=== PATIENT | male | born 1930 | race Caucasian/White ===

== ENCOUNTER 2017-11-13 13:01 | Inpatient (IN) | payer MEDICARE, BC ==
[~2017-11-13] VITALS: Ht 175.3 cm; Wt 89.4 kg
[2017-11-13 15:23] VITALS: BP 100/52; PULSE 76; TEMP 97.9
[2017-11-13] MEDS ORDERED: ZYLOPRIM 100MG100 MG PO (17:38)
[2017-11-13] MEDS ORDERED: ASPIRIN 81M81 MG/TA2 PO (17:39)
[2017-11-13] MEDS ORDERED: CRESTOR 10MG10 MG PO (17:39)
[2017-11-13] MEDS ORDERED: THE MEDICINE S200 M2 PO (17:39)
[2017-11-13] MEDS ORDERED: JANUVIA 100MG100 MG PO (17:40)
[2017-11-13] MEDS ORDERED: LASIX 40MG TABL40 MG PO (17:40)
[2017-11-13] MEDS ORDERED: LEVOXYL0.125 MG PO (17:40)
[2017-11-13] MEDS ORDERED: NATURAL MAGNES200 MG PO (17:41)
[2017-11-13] MEDS ORDERED: TOPROL XL 25MG25 MG PO (17:42)
[2017-11-13] MEDS ORDERED: NITROSTAT0.4 MG/TAB SL (17:43)
[2017-11-13] MEDS ORDERED: PRIL40 PO (17:43)
[2017-11-13 19:53] VITALS: BP 123/61; PULSE 74; TEMP 98
[2017-11-13 23:54] VITALS: BP 141/68; PULSE 62; TEMP 97.9
[2017-11-14 04:00] VITALS: BP 112/63; PULSE 69; TEMP 97.3
[2017-11-14 06:26] LABS: HEMATOCRIT 43.3 % (42.0-52.0); HEMOGLOBIN 13.7 g/dl (13.5-18.0); MEAN CELL VOLUME 105 fl (80.0-100.0); MEAN CORPUSCULAR HEMOGLOBIN 33 pg (27.0-31.0); MEAN CORPUSCULAR HGB CONC 32 g/dl (33.0-37.0); MEAN PLATELET VOLUME 11.4 fl (7.4-10.4); PLATELET COUNT 172 K/mm3 (130-400); RED BLOOD COUNT 4.11 M/mm3 (4.20-5.60); REDCELL DISTRIBUTION WIDTH-CV 14.5 % (11.5-14.5)
[2017-11-14 06:42] LABS: CALCIUM 8.8 mg/dL (8.4-10.2); CREATININE, serum 1.3 mg/dL (0.66-1.25); POTASSIUM 4.3 mmol/L (3.4-5.0)
[2017-11-14 07:11] LABS: BAND 10 % (0-10); LYMPHOCYTE 5 % (20.0-51.0); NEUTROPHILS 71 % (42.0-75.2); PLATELET ESTIMATE NORMAL (NORMAL)
[2017-11-14 07:21] VITALS: BP 118/66; PULSE 66; TEMP 97.8
[2017-11-14 11:49] VITALS: BP 129/69; PULSE 97; TEMP 97.8
[2017-11-14] MEDS ORDERED: LASIX 40MG TABL40 MG PO (14:08)
[2017-11-14 16:02] VITALS: BP 114/47; PULSE 60; TEMP 97.8
[2017-11-14 18:19] LABS: HEMATOCRIT 39.4 % (42.0-52.0); HEMOGLOBIN 12.8 g/dl (13.5-18.0); MEAN CELL VOLUME 105 fl (80.0-100.0); MEAN CORPUSCULAR HEMOGLOBIN 34 pg (27.0-31.0); MEAN CORPUSCULAR HGB CONC 33 g/dl (33.0-37.0); MEAN PLATELET VOLUME 11.7 fl (7.4-10.4); PLATELET COUNT 151 K/mm3 (130-400); RED BLOOD COUNT 3.77 M/mm3 (4.20-5.60); REDCELL DISTRIBUTION WIDTH-CV 14.6 % (11.5-14.5)
[2017-11-14 20:06] VITALS: BP 126/67; PULSE 68; TEMP 98.3
[2017-11-14 20:58] VITALS: BP 126/67; PULSE 68; TEMP 98.3
[2017-11-15] VITALS (625 sets, daily range): BP systolic 94–133; BP diastolic 56–84; PULSE 71–90; TEMP 97.4–99.3; O2SAT 60–100
[2017-11-15 06:33] LABS: BASO % 0.1 % (0.0-2.0); GRAN # 12.8 (1.4-6.5); GRAN % 89.9 % (42.2-75.2); HEMATOCRIT 43.1 % (42.0-52.0); HEMOGLOBIN 13.6 g/dl (13.5-18.0); LYMPH # 0.5 (1.2-3.4); LYMPH % 3.5 % (20.0-51.0); MEAN CELL VOLUME 106 fl (80.0-100.0); MEAN CORPUSCULAR HEMOGLOBIN 33 pg (27.0-31.0); MEAN CORPUSCULAR HGB CONC 32 g/dl (33.0-37.0); MEAN PLATELET VOLUME 11.3 fl (7.4-10.4); MONO # 0.8 (0.1-0.6); MONO % 5.9 % (1.7-9.3); PLATELET COUNT 161 K/mm3 (130-400); RED BLOOD COUNT 4.08 M/mm3 (4.20-5.60); REDCELL DISTRIBUTION WIDTH-CV 14.5 % (11.5-14.5)
[2017-11-15 06:44] LABS: ALBUMIN 3.4 gm/dL (3.5-5.0); BILIRUBIN,TOTAL 0.9 mg/dL (0.0-1.0); CALCIUM 8.1 mg/dL (8.4-10.2); CREATININE, serum 1.52 mg/dL (0.66-1.25); MAGNESIUM 1.6 mg/dL (1.6-2.3); POTASSIUM 4.3 mmol/L (3.4-5.0); TOTAL PROTEIN 6.8 gm/dL (6.4-8.2)
[2017-11-16] VITALS (222 sets, daily range): BP systolic 82–150; BP diastolic 34–88; PULSE 70–112; TEMP 97.5–99.3; O2SAT 91–100
[2017-11-16 05:57] LABS: BASO % 0.1 % (0.0-2.0); GRAN # 9.4 (1.4-6.5); HEMATOCRIT 40.1 % (42.0-52.0); HEMOGLOBIN 12.6 g/dl (13.5-18.0); LYMPH # 0.7 (1.2-3.4); MEAN CELL VOLUME 107 fl (80.0-100.0); MEAN CORPUSCULAR HEMOGLOBIN 34 pg (27.0-31.0); MEAN CORPUSCULAR HGB CONC 31 g/dl (33.0-37.0); MEAN PLATELET VOLUME 11.6 fl (7.4-10.4); MONO # 1.3 (0.1-0.6); MONO % 10.9 % (1.7-9.3); PLATELET COUNT 169 K/mm3 (130-400); RED BLOOD COUNT 3.76 M/mm3 (4.20-5.60); REDCELL DISTRIBUTION WIDTH-CV 14.6 % (11.5-14.5)
[2017-11-16 06:14] LABS: CREATININE, serum 1.7 mg/dL (0.66-1.25); POTASSIUM 4.4 mmol/L (3.4-5.0)
[2017-11-17 03:30] VITALS: BP 142/85; PULSE 97; TEMP 98.4
[2017-11-17 05:45] LABS: BASO % 0.1 % (0.0-2.0); EOS % 0.2 % (0-4.0); GRAN # 9.8 (1.4-6.5); GRAN % 84.7 % (42.2-75.2); HEMATOCRIT 37.9 % (42.0-52.0); HEMOGLOBIN 11.7 g/dl (13.5-18.0); LYMPH # 0.8 (1.2-3.4); LYMPH % 7.3 % (20.0-51.0); MEAN CELL VOLUME 108 fl (80.0-100.0); MEAN CORPUSCULAR HEMOGLOBIN 33 pg (27.0-31.0); MEAN CORPUSCULAR HGB CONC 31 g/dl (33.0-37.0); MEAN PLATELET VOLUME 11.1 fl (7.4-10.4); MONO # 0.8 (0.1-0.6); MONO % 6.7 % (1.7-9.3); PLATELET COUNT 167 K/mm3 (130-400); RED BLOOD COUNT 3.52 M/mm3 (4.20-5.60); REDCELL DISTRIBUTION WIDTH-CV 14.6 % (11.5-14.5)
[2017-11-17 06:03] LABS: CALCIUM 8.5 mg/dL (8.4-10.2); CREATININE, serum 1.56 mg/dL (0.66-1.25); POTASSIUM 3.8 mmol/L (3.4-5.0)
[2017-11-17 11:22] VITALS: BP 144/87; PULSE 97; TEMP 97.3
[2017-11-17 13:25] LABS: IRON,SERUM 18 ug/dL (35-150)
[2017-11-17 13:34] LABS: TOTAL IRON BINDING CAPACITY 205 ug/dL (261-462)
[2017-11-17 16:02] VITALS: BP 154/83; PULSE 101; TEMP 97.4
[2017-11-17 21:13] VITALS: BP 148/90; PULSE 111; TEMP 07.2
[2017-11-17 23:51] VITALS: BP 126/84; PULSE 120; TEMP 97.3
[2017-11-18] VITALS (14 sets, daily range): BP systolic 128–154; BP diastolic 59–97; PULSE 89–114; TEMP 97.5–98.6
[2017-11-18 08:19] LABS: CALCIUM 8.9 mg/dL (8.4-10.2); CREATININE, serum 1.63 mg/dL (0.66-1.25); POTASSIUM 3.1 mmol/L (3.4-5.0)
[2017-11-18 08:52] LABS: HEMOGLOBIN 11.8 g/dl (13.5-18.0); MEAN CORPUSCULAR HEMOGLOBIN 33 pg (27.0-31.0); MEAN CORPUSCULAR HGB CONC 32 g/dl (33.0-37.0); MEAN PLATELET VOLUME 11.4 fl (7.4-10.4); PLATELET COUNT 195 K/mm3 (130-400); RED BLOOD COUNT 3.59 M/mm3 (4.20-5.60); REDCELL DISTRIBUTION WIDTH-CV 14.5 % (11.5-14.5)
[2017-11-18 08:53] LABS: HEMATOCRIT 36.9 % (42.0-52.0); MEAN CELL VOLUME 103 fl (80.0-100.0)
[2017-11-18 09:07] LABS: BAND 16 % (0-10); LYMPHOCYTE 3 % (20.0-51.0); NEUTROPHILS 68 % (42.0-75.2); PLATELET ESTIMATE NORMAL (NORMAL)
[2017-11-18 14:40] LABS: FOLATE (FOLIC ACID) 12.6 ng/mL (7.0-31.4)
[2017-11-19] VITALS (7 sets, daily range): BP systolic 131–146; BP diastolic 74–97; PULSE 80–97; TEMP 97.3–98.8
[2017-11-19 06:19] LABS: HEMOGLOBIN 11.2 g/dl (13.5-18.0); MEAN CELL VOLUME 105 fl (80.0-100.0); MEAN CORPUSCULAR HEMOGLOBIN 33 pg (27.0-31.0); MEAN CORPUSCULAR HGB CONC 32 g/dl (33.0-37.0); MEAN PLATELET VOLUME 11.2 fl (7.4-10.4); PLATELET COUNT 201 K/mm3 (130-400); RED BLOOD COUNT 3.38 M/mm3 (4.20-5.60); REDCELL DISTRIBUTION WIDTH-CV 14.4 % (11.5-14.5)
[2017-11-19 06:20] LABS: HEMATOCRIT 35.5 % (42.0-52.0)
[2017-11-19 06:27] LABS: CALCIUM 8.5 mg/dL (8.4-10.2); CREATININE, serum 1.84 mg/dL (0.66-1.25); POTASSIUM 3.7 mmol/L (3.4-5.0)
[2017-11-19 09:46] LABS: BAND 9 % (0-10); EOSINOPHIL 2 % (0-4); LYMPHOCYTE 14 % (20.0-51.0); NEUTROPHILS 67 % (42.0-75.2)
[2017-11-19 09:47] LABS: PLATELET ESTIMATE NORMAL (NORMAL)
[2017-11-20 00:54] VITALS: BP 141/70; PULSE 69; TEMP 97.4
[2017-11-20 05:00] VITALS: BP 134/74; PULSE 80; TEMP 97.7
[2017-11-20 07:52] VITALS: BP 139/69; PULSE 82; TEMP 97.8
[2017-11-20 08:17] LABS: HEMOGLOBIN 11.4 g/dl (13.5-18.0); MEAN CELL VOLUME 104 fl (80.0-100.0); MEAN CORPUSCULAR HEMOGLOBIN 33 pg (27.0-31.0); MEAN CORPUSCULAR HGB CONC 32 g/dl (33.0-37.0); MEAN PLATELET VOLUME 10.5 fl (7.4-10.4); PLATELET COUNT 194 K/mm3 (130-400); RED BLOOD COUNT 3.44 M/mm3 (4.20-5.60); REDCELL DISTRIBUTION WIDTH-CV 14.6 % (11.5-14.5)
[2017-11-20 08:19] LABS: HEMATOCRIT 35.8 % (42.0-52.0)
[2017-11-20 08:30] LABS: CREATININE, serum 1.67 mg/dL (0.66-1.25)
[2017-11-20 08:53] LABS: BAND 13 % (0-10); EOSINOPHIL 1 % (0-4); HYPOCHROMIA 2+; LYMPHOCYTE 12 % (20.0-51.0); METAMYELOCYTE 1 % (0-0); NEUTROPHILS 68 % (42.0-75.2); PLATELET ESTIMATE NORMAL (NORMAL)
[2017-11-20 12:15] VITALS: BP 127/101; PULSE 83; TEMP 97.9
[2017-11-20 13:11] VITALS: BP 134/57
[2017-11-20 13:45] VITALS: BP 134/57; PULSE 83; TEMP 97.9
[2017-11-20] MEDS ORDERED: XARELTO15 MG PO (14:32)
== END 2017-11-20 15:10 | disposition swing bed (61) | DRG 329 ==
LOC: SURG 13:01 → ICU 11-15 01:00 → JCC 11-16 11:47 → SURG 11-19 01:23 → JCC 11-19 01:23 → SURG 11-19 14:15
PROVIDERS: Family Medicine; Internal Medicine; Surgery
PROC: 0DTA0ZZ Resection of Jejunum, Open Approach (ICD-10-PCS; principal; 2017-11-14 21:30)
PROC: 0DTB0ZZ Resection of Ileum, Open Approach (ICD-10-PCS; 2017-11-14 21:30)
PROC: 0WJP4ZZ Inspection of Gastrointestinal Tract, Percutaneous Endoscopic Approach (ICD-10-PCS; 2017-11-14 21:30)
PROC: 0D7H8ZZ Dilation of Cecum, Via Natural or Artificial Opening Endoscopic (ICD-10-PCS; 2017-11-14 21:30)
DX: K55.011 Focal (segmental) acute (reversible) ischemia of small intestine (principal); J18.9 Pneumonia, unspecified organism; G93.40 Encephalopathy, unspecified; I50.22 Chronic systolic (congestive) heart failure; K92.1 Melena; N17.9 Acute kidney failure, unspecified; I13.0 Hypertensive heart and chronic kidney disease with heart failure and stage 1 through stage 4 chronic kidney disease, or unspecified chronic kidney disease; K91.31 Postprocedural partial intestinal obstruction; F05 Delirium due to known physiological condition; I25.10 Atherosclerotic heart disease of native coronary artery without angina pectoris; I48.91 Unspecified atrial fibrillation; E11.22 Type 2 diabetes mellitus with diabetic chronic kidney disease; N18.9 Chronic kidney disease, unspecified; Z95.810 Presence of automatic (implantable) cardiac defibrillator; Z95.1 Presence of aortocoronary bypass graft; Z95.5 Presence of coronary angioplasty implant and graft; Z87.891 Personal history of nicotine dependence
CPT/HCPCS: 99222; 99232-AI; A4314; A9284; J0690; J1170; J1650; J1815; J1940; J1956; J2405; J2543; J2704; J3010; J3480; J7030; Q9967

== ENCOUNTER 2018-04-05 11:22 | Inpatient (IN) | payer MEDICARE, BC ==
[~2018-04-05] VITALS: Ht 167.6 cm; Wt 71.4 kg
[2018-04-05] VITALS (8 sets, daily range): BP systolic 105–129; BP diastolic 51–70; PULSE 70–108; TEMP 97–97.5
[~2018-04-05 11:22] MED LIST: ALDACTONE 25MG25 M1 PO; ASPIRIN 81M81 MG/TA2 PO; CORDARONE200 MG/TAB PO; CRESTOR 10MG10 MG PO; FERROUS SU325 MG/TAB PO; FIRVANQ50 MG/1 ML PO; JANUVIA 100MG100 MG PO; LASIX 40MG TABL40 MG PO; LEVOXYL0.125 MG PO; NATURAL MAGNES200 MG PO; NITROSTAT0.4 MG/TAB SL; PRIL40 PO; PRILOSEC 20MG20 MG PO; THE MEDICINE S200 M2 PO; TOPROL XL 25MG25 MG PO; XARELTO15 MG PO; ZYLOPRIM 100MG100 MG PO
[2018-04-05 11:56] LABS: HEMATOCRIT 37.4 % (42.0-52.0); HEMOGLOBIN 11.9 g/dl (13.5-18.0); MEAN CELL VOLUME 98 fl (80.0-100.0); MEAN CORPUSCULAR HEMOGLOBIN 31 pg (27.0-31.0); MEAN CORPUSCULAR HGB CONC 32 g/dl (33.0-37.0); MEAN PLATELET VOLUME 10.6 fl (7.4-10.4); PLATELET COUNT 269 K/mm3 (130-400); RED BLOOD COUNT 3.82 M/mm3 (4.20-5.60)
[2018-04-05 12:05] LABS: ALBUMIN 3.8 gm/dL (3.5-5.0); BILIRUBIN,TOTAL 0.4 mg/dL (0.0-1.0); CALCIUM 9.7 mg/dL (8.4-10.2); CREATININE, serum 2.28 mg/dL (0.66-1.25); POTASSIUM 4.9 mmol/L (3.4-5.0)
[2018-04-05 12:07] LABS: ANISOCYTOSIS 1+; LYMPHOCYTE 4 % (20.0-51.0); NEUTROPHILS 91 % (42.0-75.2); PLATELET ESTIMATE NORMAL (NORMAL)
[2018-04-05 12:12] LABS: INR 1.2 (0.8-3.0)
[2018-04-05 12:32] LABS: PH 5 (5-8); SQUAMOUS EPITHELIAL None Seen /hpf; URINE APPEARANCE Turbid; URINE BACTERIA Moderate /hpf; URINE BILIRUBIN Negative (NEGATIVE); URINE BLOOD 2+ (NEGATIVE); URINE COLOR Yellow; URINE GLUCOSE Negative (NEGATIVE); URINE KETONE Negative (NEGATIVE); URINE LEUKOCYTE ESTERASE 3+ (NEGATIVE); URINE NITRATE Positive (NEGATIVE); URINE PROTEIN(semi-quant) 2+ (NEGATIVE); URINE UROBILINOGEN Negative (NEGATIVE)
[2018-04-05 12:39] LABS: COLLECTION METHOD CATHETER
--- NOTE | 2018-04-05 14:10 | NUR ---
Pt arrived to room 354 at this time. Son is at bedside. Pt is A/O x3. His breathing is even and unlabored on RA. Pt denies any pain or SOB. Pt reports not eating or drinking well, states he has not had solid foods for the past week. Pt very skinny with sunk in abdomen, stating his mouth is very dry. POC discussed with both patient and his son who verbalize understanding. Pt denies any needs at this time. Call light within reach.
--- NOTE | 2018-04-05 15:10 | NUR ---
Pt left for EGD at this time.
--- NOTE | 2018-04-05 18:04 | NUR ---
Bedside swallow study completed with patient. He tolerated water without complications, no coughing, clearing of throat, pocketing or drooling. Pt denies any pain. Pt incontinent of urine and stool, pericare provided. IVF infusing without complications. Call light within reach. Will continue to monitor.
--- NOTE | 2018-04-05 20:15 | NUR ---
Patient assessed. Denies having pain and discomfort. Patient ate some jello and drank some broth for supper. Denies wanting anything else at this time. No coughing noted during swallowing. LS CTA. Respirations are even and unlabored. Heart wtih regular rate and rhythm. Bowel sounds active x 4. Patient incontinent of loose stool and bladder. Perineal hygiene care provided by staff. Denies having pain, burning, and discomfort wtih urination. Unable to observe urine due to incontinence. Moisture barrier applied. Some rednesses to coccyx area, and tender, but blanchable. HOB elevated at all times.
--- NOTE | 2018-04-05 22:28 | NUR ---
Patient has been having loose stools and has a history of C-diff per daughter. Called and spoke with Ale. New order received to check for C-diff. Not obtained at this time. Contact isolation initiated.
[2018-04-06 00:46] VITALS: BP 113/59; PULSE 107; TEMP 98.7
--- NOTE | 2018-04-06 02:14 | NUR ---
At approximately 0130, patient was changed. Stool sample collected to check for C-diff. Stool was not as loose as it was earlier this shift. Tried to reposition patient, but patient refused, stating that he was not comfortable. Patient move bottom slightly in bed showing this nurse that he does not stay on his bottom the entire time. Tried to encourage patient to allow staff to put pillow behind his back to ensure he stays off of his bottom for a while, but continued to refuse. Reminded of his bottom being red and wanting to prevent breakdown. Patient stated that staff just needed to make sure he was dry and put moisture barrier ointment on his bottom. Explained to patient that this only does so much, and the pressure from staying on his bottom will cause more skin breakdown, but continued to refuse repositioning from staff.
[2018-04-06 04:36] VITALS: BP 131/75; PULSE 101; TEMP 98
--- NOTE | 2018-04-06 06:27 | NUR ---
Patient had one more episode of soft formed BM this shift. Lab stated that the stool was not loose enough to check for C-diff, and patient's stools have seemed to get thicker throughout the night. Denies having pain and discomfort. Has been drinking water ok without any coughing episodes. NS continues to run at 75 ml/hr. Continues to refuse to reposition off of back/bottom. Does slightly turn to sides, but not enough to get pressure off of bottom. Incontinent cares provided by staff. Moisture barrier ointment applied with each incontinent episode. Resting in bed with eyes closed at this time. Call light is within reach.
[2018-04-06 07:57] LABS: BASO % 0.1 % (0.0-2.0); EOS % 0.1 % (0-4.0); GRAN # 12.2 (1.4-6.5); GRAN % 83.9 % (42.2-75.2); LYMPH # 1.2 (1.2-3.4); LYMPH % 7.9 % (20.0-51.0); MEAN CELL VOLUME 99 fl (80.0-100.0); MEAN CORPUSCULAR HGB CONC 31 g/dl (33.0-37.0); MEAN PLATELET VOLUME 10.9 fl (7.4-10.4); MONO % 6.6 % (1.7-9.3); PLATELET COUNT 244 K/mm3 (130-400); RED BLOOD COUNT 3.17 M/mm3 (4.20-5.60); REDCELL DISTRIBUTION WIDTH-CV 17.9 % (11.5-14.5)
[2018-04-06 08:03] LABS: HEMATOCRIT 31.5 % (42.0-52.0); HEMOGLOBIN 9.8 g/dl (13.5-18.0); MEAN CORPUSCULAR HEMOGLOBIN 31 pg (27.0-31.0)
[2018-04-06 08:08] LABS: ALBUMIN 2.8 gm/dL (3.5-5.0); BILIRUBIN,TOTAL 0.2 mg/dL (0.0-1.0); CALCIUM 8.7 mg/dL (8.4-10.2); CREATININE, serum 1.76 mg/dL (0.66-1.25); POTASSIUM 4.9 mmol/L (3.4-5.0); TOTAL PROTEIN 6.5 gm/dL (6.4-8.2)
[2018-04-06 08:11] VITALS: BP 112/65; PULSE 81; TEMP 97.7
--- NOTE | 2018-04-06 10:00 | NUR ---
Patient arrived to unit from ER. Patient's brother at bedside. Patient mostly non-verbal, per brother (DPOA). Patient appears comfortable in bed, no pain cues noted. Will continue to assess.
--- NOTE | 2018-04-06 10:30 | NUR ---
Shift assessment complete. Patient a/o x3. Patient brief changed, incontinent of bladder only. Barrier cream applied. Set-up for breakfast, patient upset with pureed meal. States, 8/10 pain in shoulder, declines medication. Will continue to monitor.
--- NOTE | 2018-04-06 11:00 | NUR ---
Patient in bed, sleeping. HOB flat per pt request. Will continue to monitor.
[2018-04-06 12:34] VITALS: BP 11/57; PULSE 94; TEMP 97.7
[2018-04-06 16:18] VITALS: BP 118/59; PULSE 68; TEMP 97.1
--- NOTE | 2018-04-06 16:45 | NUR ---
Patient lying in bed, states he needs changed. Turned and changed, loose BM noted. Pt tolerated well. States, he does not want dinner, but asked for milk, juice, ensure, water, and pudding.
[2018-04-06 19:22] VITALS: BP 112/54; PULSE 72
--- NOTE | 2018-04-06 19:42 | NUR ---
PT IN BED LYING FLAT WITH BOTH EYES CLOSED. PT EASILY AWAKENS WHEN SPOKEN TO. PT DENIES PAIN OR DISCOMFORT AT THIS TIME. NO NEEDS AND CALL LIGHT WITH IN REACH.
[2018-04-07 01:32] VITALS: BP 123/69; PULSE 78; TEMP 97.2
[2018-04-07 05:07] VITALS: BP 130/62; PULSE 77
--- NOTE | 2018-04-07 06:35 | NUR ---
PT HAS BEEN ASLEEP FOR MOST OF THE NIGHT. PT HAS HAD FREQUENT WATERY DIARRHEA THAT SOAKS THE BRIEF. PT IS WEAK AND CANNOT TURN HIMSELF, THEREFORE, PT IS ASSISTED IN TURNING. PT HAS NO SKIN BREAKDOWN, AND BARRIER CREAM APPLIED TO BOTTOM. PT GIVEN WATER AND IV FLUIDS STILL RUNNING. NO FURTHER NEEDS, CALL LIGHT WITHIN REACH.
[2018-04-07 08:45] VITALS: BP 118/67; PULSE 72; TEMP 97.5
[2018-04-07 09:20] LABS: BASO % 0.1 % (0.0-2.0); EOS # 0.1 (0.0-0.7); EOS % 1.1 % (0-4.0); GRAN # 7.6 (1.4-6.5); GRAN % 76.2 % (42.2-75.2); LYMPH # 1.2 (1.2-3.4); LYMPH % 11.8 % (20.0-51.0); MEAN CELL VOLUME 98 fl (80.0-100.0); MEAN CORPUSCULAR HGB CONC 31 g/dl (33.0-37.0); MONO # 0.9 (0.1-0.6); MONO % 9.5 % (1.7-9.3); PLATELET COUNT 234 K/mm3 (130-400); RED BLOOD COUNT 3.15 M/mm3 (4.20-5.60); REDCELL DISTRIBUTION WIDTH-CV 17.8 % (11.5-14.5)
[2018-04-07 09:24] LABS: HEMOGLOBIN 9.7 g/dl (13.5-18.0); MEAN CORPUSCULAR HEMOGLOBIN 31 pg (27.0-31.0)
[2018-04-07 09:31] LABS: CALCIUM 8.5 mg/dL (8.4-10.2); CREATININE, serum 1.41 mg/dL (0.66-1.25); POTASSIUM 4.3 mmol/L (3.4-5.0)
--- NOTE | 2018-04-07 09:45 | NUR ---
PATIENT ASSESSMENT COMPLETED. HE ACTS IF HE DOESN'T HEAR ME WHEN I AM TALKING TO HIM WHEN I ENTER THE ROOM. THE [employer]TE[employer] SUPPORT MANAGER AND RT ARE NOW IN THE ROOM TO DO VITALS AND THEIR ASSESSMENT ALSO HE NOW WAKES UP AND ANSWERS QUESTIONS FREELY. BREAKFAST IS ORDERED.
[2018-04-07 10:00] LABS: TSH w REFLEX 2.62 uIU/mL (0.465-4.680)
[2018-04-07 12:50] VITALS: BP 111/68; PULSE 87; TEMP 97.8
--- NOTE | 2018-04-07 12:56 | NUR ---
PATIENT REFUSES TO LET ME GIVE HIM A LOVENOX INJECTION. I HAVE GIVEN HIM THE REASONS WHY WE ARE TO GIVE THIS HE DOESN'T CARE AND DOES NOT WANT THE INJECTION!
--- NOTE | 2018-04-07 16:34 | NUR ---
Plan is to return home with spouse and 24 hour nursing care in home [facility]. Assess: SW's visited patient to discuss DC-plan. Patient reports that he lives in [place] with his Tony . Son Theodore is DPOA . Patient denies the use of any DME and stated that he uses a walker when he needs it. Patient reports that his daughter Roopa Moraes is also the DPOA. SW called patients to obtain information on ability to return home. Both and patient reports that they are against doing any hospice or nursing facilities and have private care setup at home 24 hours a day for both of them. Patient is scheduled for additonal testing. reports that the son or daughter will transport home. Action: No additional needs identified.
[2018-04-07 16:53] VITALS: BP 112/56; PULSE 77; TEMP 97.7
--- NOTE | 2018-04-07 19:00 | NUR ---
PATIENT HAS AT LEAST 6 INCONTIENT STOOLS AND URINES TODAY. HE WILL CALL TO HAVE GET HIM CLEANED UP AFTER HIS INCONTIENCE. HE DOESN'T WANT TO GET TO THE COMMODE ANY OF THESE TIMES.
[2018-04-07 19:22] VITALS: BP 113/53; PULSE 69; TEMP 97.8
--- NOTE | 2018-04-07 21:25 | NUR ---
PT IN BED AND WANTS TO LAY FLAT. PT REFUSE TO BE CHANGED EARLIER BECAUSE HIS DAUGHTER WAS IN ROOM AND WANTED TO WAIT FOR HER TO LEAVE. PT WAS ASKED IF HE WAS URINATING. PT STATED, "YES, EVERYTIME I HAVE A BM, I URINATE WELL." PT WAS CHANGED AND BARRIER CREAM APPLIED TO HIS BOTTOM, [facility] ALSO PREFORMED. PT WAS HAPPY THAT THE IV FLUIDS WERE RESTARTED. PT WAS ANGRY WHEN THEY WERE STOPPED AND NOW HE IS PLEASANT AND COOPERATIVE AGAIN. PT DENIES PAIN OR DISCOMFORT, AND NO FURTHER NEEDS. CALL LIGHT WITHIN REACH.
--- NOTE | 2018-04-07 21:32 | NUR ---
PT'S DAUGHTER SERGIO NELSON SPOKE ABOUT HER CONCERNS FOR HER FATHER. SHE ADVISED THAT HER FATHER TOLD HER THAT HE DOES NOT WANT THE BARRIUM SWALLOW STUDY DONE TOMORROW. PT DOES NOT FEEL THAT HE NEEDS IT, BUT SHE FEELS THAT HE DOES NEED IT. SHE IS ALSO CONCERNED THAT HE HAS HAD DIARRHEA FOR MONTHS NOW SINCE OCT 2017. SHE WOULD LIKE SOMETHING TO BE DONE ABOUT THE DIARRHEA AND FOR PT TO STAY FOR A FEW MORE DAYS. SHE ALSO REQUESTED FOR THE DOCTOR TO CALL HER IN THE MORNING ON 04/08/18 HER # IS [phone]. SHE IS THE DPOA AND HAS PAPERWORK FOR IT.
--- NOTE | 2018-04-07 21:38 | NUR ---
CALLED TONI HAWK ABOUT PT AND DAUGHTER'S CONCERN THAT FUILD BEING STOPPED AND WANTS IV FLUIDS TO BE CONTINUED. TONI HAWK GAVE ORDERS TO RESTART FLUIDS AT 75ML/HR NS.
[2018-04-08] VITALS (7 sets, daily range): BP systolic 120–133; BP diastolic 53–71; PULSE 67–75; TEMP 97–98.7
--- NOTE | 2018-04-08 05:11 | NUR ---
PT HAS HAD AN UNEVENTFUL NIGHT. PT HAS BEEN CHANGE A FEW TIMES THIS NIGHT AND EACH TIME PT HAS HAD LIFQUID BROWN STOOLS. PT ADVISES THAT HE DOES URINATE WELL WHEN HE HAS LOOSE STOOLS. PT HAS BARRIER CREME APPLIED EACH TIME AFTER HE IS CLEANED UP AND CHANGED. PT REFUSES TO REPOSITION FROM BACK. AFTER PT IS CHANGED HE GOES BACK TO SLEEP WITH NO PROBLEMS. NO FURTHER NEEDS AND CALL LIGHT WITHIN REACH.
--- NOTE | 2018-04-08 08:15 | NUR ---
Assessment completed, alert/oriented, vital signs stable, denies pain while at rest/ does report right shoulder pain with movement and exertion and some riri-rectal pain due from nearly constant incontinence, incontinence cares provided at this time/ some redness noted to riri area but no breakdown observed, he is still having diarrhea/ C-diff has resulted and is NEGATIVE, patient has refused ST eval this morning and is refusing MBSS as well and does not want a puree diet/ I educated on risks of aspiration and he replied " I dont care", heart RRR, lungS CTA/ no resp.difficulty noted at rest, I have ordered his breakfast and he denies needs at this time, Lab in room to draw some blood
[2018-04-08 08:49] LABS: CALCIUM 8.3 mg/dL (8.4-10.2); CREATININE, serum 1.12 mg/dL (0.66-1.25); POTASSIUM 4.4 mmol/L (3.4-5.0)
--- NOTE | 2018-04-08 10:20 | NUR ---
SW attended clinical rounds. discussed discharge plans with patient. PT is recommending post acute rehab but patient refuses SNF and wants to go home. Patient is set up with 24 hr nursing care at home but it is not recommended for patient to go home at this time. will contact patient's daughter this afternoon.
--- NOTE | 2018-04-08 14:53 | NUR ---
patient will does not want to try and get up to eat, he will not even allow us to do position changes
--- NOTE | 2018-04-08 19:50 | NUR ---
Pt resting in bed napping, shift assessments complete, left Pt call light in reach, bed in lowest position.
[2018-04-09 05:02] VITALS: BP 150/94; PULSE 73; TEMP 96.5
--- NOTE | 2018-04-09 05:20 | NUR ---
Pt slept well during the night, he did have two loose stools during the shift, VS have remained stable
[2018-04-09 07:22] LABS: MEAN CELL VOLUME 98 fl (80.0-100.0); MEAN CORPUSCULAR HGB CONC 32 g/dl (33.0-37.0); MEAN PLATELET VOLUME 10.7 fl (7.4-10.4); PLATELET COUNT 241 K/mm3 (130-400); RED BLOOD COUNT 3.19 M/mm3 (4.20-5.60); REDCELL DISTRIBUTION WIDTH-CV 17.7 % (11.5-14.5)
[2018-04-09 07:31] LABS: HEMATOCRIT 31.4 % (42.0-52.0); HEMOGLOBIN 9.9 g/dl (13.5-18.0); MEAN CORPUSCULAR HEMOGLOBIN 31 pg (27.0-31.0)
[2018-04-09 07:41] LABS: CALCIUM 8.4 mg/dL (8.4-10.2); CREATININE, serum 1.07 mg/dL (0.66-1.25); POTASSIUM 4.5 mmol/L (3.4-5.0)
[2018-04-09 07:42] VITALS: BP 137/58; PULSE 80; TEMP 98.2
[2018-04-09 07:50] LABS: ANISOCYTOSIS 1+; BAND 16 % (0-10); EOSINOPHIL 1 % (0-4); LYMPHOCYTE 20 % (20.0-51.0); METAMYELOCYTE 1 % (0-0); NEUTROPHILS 55 % (42.0-75.2); PLATELET ESTIMATE NORMAL (NORMAL)
[2018-04-09] MEDS ORDERED: ZYLOPRIM 100MG100 MG PO (09:55)
[2018-04-09] MEDS ORDERED: CEFTIN 250250 MG/TAB PO (09:56)
--- NOTE | 2018-04-09 10:18 | NUR ---
Patient will be discharging home today. Per patient's son, Theodore, he has 24 hour nursing care through [facility] Patient's son reports he will be at the hospital later this afternoon.
[2018-04-09 11:01] VITALS: BP 122/50; PULSE 69; TEMP 98.7
--- NOTE | 2018-04-09 11:34 | NUR ---
First visit from the flakeboard line tender. No needs right now.
--- NOTE | 2018-04-09 13:59 | NUR ---
This RN reviewed discharge instructions with pt and his family, answered all questions. Pt brief is clean, assisted into clothing, INT removed with tip intact and site free of redness, swelling. personal belongings collected and pt assisted into wheelchair. Left facility
--- NOTE | 2018-04-09 14:26 | NUR ---
SW met presented IM to patient's son. He signed and was provided a copy.
== END 2018-04-09 14:03 | disposition home or self-care (01) | DRG 871 ==
LOC: COL.ER 11:22 → MEDICAL 12:47
PROVIDERS: Emergency Medicine; Internal Medicine Gastroenterology; Nurse Practitioner Family; Physician Assistant; ADMIT Hospitalist
PROC: 0DJ08ZZ Inspection of Upper Intestinal Tract, Via Natural or Artificial Opening Endoscopic (ICD-10-PCS; principal; 2018-04-05 15:30)
DX: A41.9 Sepsis, unspecified organism (principal); E43 Unspecified severe protein-calorie malnutrition; N39.0 Urinary tract infection, site not specified; I13.0 Hypertensive heart and chronic kidney disease with heart failure and stage 1 through stage 4 chronic kidney disease, or unspecified chronic kidney disease; N17.9 Acute kidney failure, unspecified; E87.2 Acidosis; E11.22 Type 2 diabetes mellitus with diabetic chronic kidney disease; N18.9 Chronic kidney disease, unspecified; I50.9 Heart failure, unspecified; I25.10 Atherosclerotic heart disease of native coronary artery without angina pectoris; E11.65 Type 2 diabetes mellitus with hyperglycemia; J44.9 Chronic obstructive pulmonary disease, unspecified; I48.91 Unspecified atrial fibrillation; Z95.5 Presence of coronary angioplasty implant and graft; Z95.1 Presence of aortocoronary bypass graft; Z95.810 Presence of automatic (implantable) cardiac defibrillator; Z87.891 Personal history of nicotine dependence; R62.7 Adult failure to thrive; Z68.26 Body mass index [BMI] 26.0-26.9, adult; R13.10 Dysphagia, unspecified; B96.1 Klebsiella pneumoniae [K. pneumoniae] as the cause of diseases classified elsewhere; D64.9 Anemia, unspecified
CPT/HCPCS: 99232-AI; 99233-AI; 99239; A4216; J0696; J1650; J2704; J7030; J7120